=== PATIENT | female | born 1985 | race American Indian/Alaskan Native ===

== ENCOUNTER 2018-08-26 00:07 | Emergency (ER) | payer SELFPAY ==
[2018-08-26 00:51] VITALS: BP 131/88
[2018-08-26] MEDS ORDERED: ULTRAM PO ONE (02:19)
[2018-08-26] MEDS ORDERED: TRIMOX PO ONE (02:19)
--- NOTE | 2018-08-26 02:24 | Emergency Department Report ---
ED ENT HPI - General Chief complaint: Dental/Oral Stated complaint: INFECTION IN GUMS Time Seen by Provider: 08/26/18 02:19 Source: patient Mode of arrival: Ambulatory Limitations: No Limitations - History of Present Illness Initial comments: There is a 32-year-old female who presents with dental pain days patient has history of recurrent dental abscesses been no fever no chills no ear or throat pain is exacerbated by hot and cold stimuli pain is relieved by nothing complaint: tooth pain Onset/Timin -: days(s) Severity: moderate Severity scale (0 -10): 5 Quality: aching Consistency: constant Improves with: none Worsens with: other (hot and cold stimuli) Context- Dental: history of dental caries, poor dental care Associated Symptoms: toothache - Related Data Previous Rx's Medication Instructions Recorded Last Taken Type Butalb/Acetamin/Caff 50-325-40 1 each PO Q4H PRN #20 tablet 04/19/13 Unknown Rx [Fioricet] Cyclobenzaprine [Flexeril] 10 mg PO Q8H PRN #21 tablet 04/19/13 Unknown Rx Amoxicillin [Trimox CAP] 500 mg PO Q8H 10 Days #30 capsule 08/26/18 Unknown Rx Chlorhexidine Mouthwash [Peridex] 15 ml MM BID #1 bottle 08/26/18 Unknown Rx Tramadol HCl [Ultram] 50 mg PO Q6H PRN #12 tablet 08/26/18 Unknown Rx Allergies Allergy/AdvReac Type Severity Reaction Status Date / Time No Known Allergies Allergy Unverified 08/26/18 00:52 ED Dental HPI - General Chief complaint: Dental/Oral Stated complaint: INFECTION IN GUMS Time Seen by Provider: 08/26/18 02:19 Source: patient Mode of arrival: Ambulatory Limitations: No Limitations - History of Present Illness Initial comments: Patient 32-year-old female who presents for dental pain 5/10 exacerbated by hot and cold stimuli there is no fevers no chills no throat or ear pain patient is tolerating by mouth intake at this time complaint: tooth pain Onset/Timin -: week(s) Severity: moderate Quality: aching Consistency: constant Improves with: none Worsens with: none Context- Dental: history of dental caries, poor dental care - Related Data Previous Rx's Medication Instructions Recorded Last Taken Type Butalb/Acetamin/Caff 50-325-40 1 each PO Q4H PRN #20 tablet 04/19/13 Unknown Rx [Fioricet] Cyclobenzaprine [Flexeril] 10 mg PO Q8H PRN #21 tablet 04/19/13 Unknown Rx Amoxicillin [Trimox CAP] 500 mg PO Q8H 10 Days #30 capsule 08/26/18 Unknown Rx Chlorhexidine Mouthwash [Peridex] 15 ml MM BID #1 bottle 08/26/18 Unknown Rx Tramadol HCl [Ultram] 50 mg PO Q6H PRN #12 tablet 08/26/18 Unknown Rx Allergies Allergy/AdvReac Type Severity Reaction Status Date / Time No Known Allergies Allergy Unverified 08/26/18 00:52 ED Review of Systems ROS: Stated complaint: INFECTION IN GUMS Other details as noted in HPI Constitutional: denies: chills, fever Eyes: denies: eye pain, eye discharge, vision change ENT: dental pain. denies: ear pain, throat pain Respiratory: denies: cough, shortness of breath, wheezing Cardiovascular: denies: chest pain, palpitations Endocrine: no symptoms reported Gastrointestinal: denies: abdominal pain, nausea, diarrhea Genitourinary: denies: urgency, dysuria, discharge Musculoskeletal: denies: back pain, joint swelling, arthralgia Skin: denies: rash, lesions Neurological: denies: headache, weakness, paresthesias Psychiatric: denies: anxiety, depression Hematological/Lymphatic: denies: easy bleeding, easy bruising ED Past Medical Hx - Past Medical History Previous Medical History?: No Hx Hypertension: Yes Hx Asthma: Yes - Surgical History Past Surgical History?: No - Social History Smoking Status: Never Smoker Substance Use Type: Alcohol - Medications Home Medications: Home Medications Medication Instructions Recorded Confirmed Last Taken Type Butalb/Acetamin/Caff 50-325-40 1 each PO Q4H PRN #20 tablet 04/19/13 Unknown Rx [Fioricet] Cyclobenzaprine [Flexeril] 10 mg PO Q8H PRN #21 tablet 04/19/13 Unknown Rx Amoxicillin [Trimox CAP] 500 mg PO Q8H 10 Days #30 capsule 08/26/18 Unknown Rx Chlorhexidine Mouthwash [Peridex] 15 ml MM BID #1 bottle 08/26/18 Unknown Rx Tramadol HCl [Ultram] 50 mg PO Q6H PRN #12 tablet 08/26/18 Unknown Rx ED Physical Exam - General Limitations: No Limitations General appearance: alert, in no apparent distress - Head Head exam: Present: atraumatic, normocephalic - Eye Eye exam: Present: normal appearance, PERRL, EOMI Pupils: Present: normal accommodation - ENT ENT exam: Present: normal exam, mucous membranes moist, TM's normal bilaterally, normal external ear exam - Expanded ENT Exam Expanded Ear exam: Present: normal external inspection Mouth exam: Absent: trismus Teeth exam: Present: dental tenderness # (19) Throat exam: Positive: normal inspection, tonsillar erythema, other (uvula midline no swelling no exudate no stridor ). Negative: tonsillomegaly, tonsillar exudate, R peritonsillar mass, L peritonsillar mass - Neck Neck exam: Present: normal inspection, full ROM. Absent: lymphadenopathy - Respiratory Respiratory exam: Present: normal lung sounds bilaterally, chest wall tenderness. Absent: respiratory distress - Cardiovascular Cardiovascular Exam: Present: regular rate, normal rhythm. Absent: systolic murmur, diastolic murmur, rubs, gallop - GI/Abdominal GI/Abdominal exam: Present: soft, normal bowel sounds - Rectal Rectal exam: Present: deferred - Extremities Exam Extremities exam: Present: normal inspection - Back Exam Back exam: Present: normal inspection, full ROM. Absent: tenderness, CVA tenderness (R), CVA tenderness (L), muscle spasm, rash noted - Neurological Exam Neurological exam: Present: alert, oriented X3, CN II-XII intact, normal gait, reflexes normal - Psychiatric Psychiatric exam: Present: normal affect, normal mood - Skin Skin exam: Present: warm, dry, intact, normal color. Absent: rash ED Course Vital Signs 08/26/18 00:44 Temperature 98.4 F Pulse Rate 79 Respiratory 16 Rate Blood Pressure 131/88 O2 Sat by Pulse 100 Oximetry ED Medical Decision Making - Medical Decision Making This is infected dental caries plan amoxicillin Ultram Peridex follow [facility] dental services in 2 days return to emergency department should symptoms worsen patient verbalized agreement and understanding of her discharge plan will be DC'd home in stable condition at this time Critical care attestation.: If time is entered above; I have spent that time in minutes in the direct care of this critically ill patient, excluding procedure time. ED Disposition Clinical Impression: Infected dental carries Disposition: DC-01 TO HOME OR SELFCARE Is pt being admited?: No Does the pt Need Aspirin: No Condition: Stable Instructions: Dental Caries (ED) Prescriptions: Chlorhexidine Mouthwash [Peridex] 15 ml MM BID #1 bottle Amoxicillin [Trimox CAP] 500 mg PO Q8H 10 Days #30 capsule Tramadol HCl [Ultram] 50 mg PO Q6H PRN #12 tablet PRN Reason: pain Referrals: THANH WHITE MD [Primary Care Provider] - 3-5 Days Forms: Work/School Release Form(ED) Time of Disposition: 02:30
== END 2018-08-26 02:40 | disposition home or self-care (01) ==
LOC: ED 00:07
DX: K02.9 Dental caries, unspecified (principal); I10 Essential (primary) hypertension; J45.909 Unspecified asthma, uncomplicated
CPT/HCPCS: 99282